=== PATIENT | male | born 2005 | race Caucasian/White ===

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

== ENCOUNTER 2025-05-30 03:13 | Emergency (ER) | payer MEDICAID, SELFPAY ==
[2025-05-30 03:14] VITALS: BP 157/95; PULSE 129; RESP 18; TEMP 36.8; O2SAT 97; BMI 21.9
--- NOTE | 2025-05-30 03:32 | RAD_ITS ---
PROCEDURE: HAND MIN 3 VIEWS 05/30/2025 REASON FOR EXAM: INJURY TECHNIQUE: Procedure Code: LESLEY Modality: DX Procedure: HAND MIN 3 VIEWS Laterality: Right. COMPARISON: None. FINDINGS: Mildly displaced/angulated fracture of the distal 5th metacarpal shaft with minimal callus formation. Normal visualized carpal bones. Normal first metacarpus. Normal remaining metacarpi. Normal phalanges. Normal carpal articulations. Normal carpometacarpal (CMC) articulation of the thumb. Normal metacarpophalangeal (MCP) joint of the thumb. Normal interphalangeal (IP) joint of the thumb. Normal second through fifth carpometacarpal (CMC) joints. Normal second through fifth metacarpophalangeal (MCP) joints. Normal proximal interphalangeal (PIP) and distal interphalangeal (DIP) joints of the second through fifth fingers. RAD/Hand Min 3 Views IMPRESSION: Mildly displaced/angulated fracture of the distal 5th metacarpal shaft with min imal callus formation. [facility]
--- NOTE | 2025-05-30 03:50 | EX.ED.UPPERE ---
HPI History of Present Illness Chief Complaint: Upper Extremity Injury Informant: patient Narrative Narrative: Patient is a 19-year-old male who is right-hand dominant with no reported medical history. He states that he injured his right hand a few weeks ago after punching something. He states this evening roughly 30 minutes prior to arrival he had become angry and punched a wall. After doing so he felt like the swelling and pain to his right hand was greater than it has been and with concern for fracture he presents for evaluation. He denies any other injury. [facility] Medical History Alcohol drinker Marijuana smoker Home Medications ?Medication ?Instructions ?Recorded ?Last Taken ?Type oxycodone-acetaminophen 5 mg-325 1 tab PO Q6H PRN pain 3 days #12 05/30/25 Unknown Rx mg tablet (Percocet) tabs Allergy/AdvReac Type Severity Reaction Status Date / Time No Known Allergies Allergy Verified 05/30/25 03:16 Social History Smoking Status: Current every day smoker tobacco type: e-cigarettes ROS ROS ED Constitutional Constitutional ED: Denies chills or fever(s) Cardiovascular Cardiovascular: Denies chest pain Respiratory/Chest Respiratory/Chest: Denies cough or dyspnea Gastrointestinal Gastrointestinal: Denies abdominal pain, diarrhea, nausea or vomiting Musculoskeletal Musculoskeletal: Reports other Details: Positive right hand pain Integumentary Denies Abrasions or rash Neurologic Neurologic: Denies headache(s) or paresthesias Hematologic/Lymphatic Hematologic/Lymphatic: Denies easy bleeding or easy bruising EXAM Physical Exam Const Vital Signs: 05/30/25 03:14 Temperature 98.2 F Temperature Source Oral Pulse Rate 129 H Respiratory Rate 18 Blood Pressure 157/95 H Blood Pressure Mean 115 Pulse Ox 97 Oxygen Delivery Method Room Air Positive well nourished and well developed General Appearance ED: well developed HEENT HEENT Narrative: Normocephalic atraumatic Eyes PERRL and EOMs intact bilaterally Neck supple Resp normal respiratory effort and clear to auscultation bilaterally Cardio regular rhythm Cardio Narrative: Tachycardic rate with regular rhythm. No murmurs rubs or gallops Radial and carotid pulses are equal and symmetric Rate: tachycardic and other Extremity Extremity Narrative: Right upper extremity is neurovascularly intact; AIN/PIN are intact and normal. There is soft tissue swelling over top the dorsal aspect of the right fifth metacarpal consistent with reported injury. There is pain with palpation at this site. There is mild bony deformity noted as well with slight rotational deformity present. No ligamentous or tendon injury noted No open wound Remainder of the exam is normal Neuro oriented x3, CN's II-XII intact bilaterally, moves all extremities, no focal motor deficits and no sensory deficits noted Sensorium / Orientation: alert Motor Exam: strength 5/5 throughout Psych mental status grossly normal Skin no rashes or lesions noted Skin Narrative: Soft tissue swelling with faint ecchymosis to the dorsal aspect of the right hand over top the distal portion of the fifth metacarpal Capillary refill is less than 3 seconds No abrasions or lacerations or secondary findings to suggest infection MDM MDM MDM Narrative Medical decision making narrative: Patient presented after reportedly punching a wall with his right hand. He states he had done something similar a few weeks ago but after the injury this evening the swelling and pain was more intense and a concern for fracture. In order to assess for fracture versus dislocation versus contusion and x-ray was obtained. This did reveal a mildly angulated and displaced fracture of the distal portion of the fifth metacarpal consistent with boxer's fracture. There does appear to be calcium deposition around the fracture site which would indicate he most likely initially broke the fracture 1 to 2 weeks ago with the initial trauma. At this time he is closed and neurovascularly intact without findings of infection. As the displacement is mild in nature and the history and exam would indicate the initial trauma/fracture occurred 1 to 2 weeks ago I do not feel the need for any type of reduction. The patient will be placed in a Ortho-Glass ulnar gutter splint to stabilize the fracture and be referred to orthopedics to discuss casting versus surgical repair. However at this time as he is closed and neurovascular intact without findings of infection or compartment syndrome he is otherwise safe for discharge. Patient was placed in a Ortho-Glass ulnar gutter splint. The splint fit the fracture fragment with good approximation and provided proper stabilization. After application the capillary refill remained less than 3 seconds. Patient tolerated the procedure well without complication History & Record Review Discussion w/independent historian: Patient Radiography Diagnostic Testing: X-ray of the right hand as interpreted by the emergency medicine physician reveals an impacted fracture of the fifth metacarpal with mild angulation and apparent calcium deposition indicating subacute injury Discharge Plan Triage Chief Complaint: Upper Extremity Injury ED Provider: Ivan Anton Dx/Rx/DC Orders Clinical Impression: Fracture of fifth metacarpal bone of right hand Instructions: ED Boxer Fracture, ED Fiberglass Splint Care Prescriptions: New oxycodone-acetaminophen [Percocet] 5-325 mg tablet 1 tab PO Q6H PRN (Reason: pain) 3 Days Qty: 12 0RF Primary Care Provider: Care Physician,No Primary Referrals: Nerissa Angel MD [Non-Staff, Pediatrics] Jarek Nichols DO [Med Staff - Active Staff, Orthopedics] Referral Note: Right fifth metacarpal fracture Activity Restrictions/Additional Instructions: Wear your splint to stabilize the fracture until you are evaluated by orthopedics/Dr. Nichols. Return to the ER should you have any further concerns Print Language: Hebrew Disposition Disposition: Home, Self Care Discharge Date/Time: 05/30/25 04:17
[2025-05-30 04:07] VITALS: BP 157/84; PULSE 97; RESP 16; TEMP 36.6; O2SAT 97
== END 2025-05-30 04:17 | disposition home or self-care (01) ==
LOC: ED 04:17
PROVIDERS: Emergency Provider Emergency Medicine; Visit Provider Emergency Medicine
DX: S62.336A Displaced fracture of neck of fifth metacarpal bone, right hand, initial encounter for closed fracture (principal); W22.09XA Striking against other stationary object, initial encounter; F17.290 Nicotine dependence, other tobacco product, uncomplicated
CPT/HCPCS: 29125; 73130; 99282